=== PATIENT | female | born 1990 | race Caucasian/White ===

== ENCOUNTER → 2018-12-16 19:00 | Emergency (ER) | payer SELFPAY ==
[~2018-12-16 19:00] MED LIST: DOXYcycline CAP(*) 100 MG PO SCH; Ibuprofen TAB* 600 MG PO ONE
--- NOTE | 2018-12-16 20:25 | ED ---
Bite Injury/Animal - HPI Summary HPI Summary: This patient is a 28 year old female presenting to [facility] with a chief complaint of possible Lyme disease after tick bites. Eight days ago, the patient states she found two ticks on her and removed them. She states she has not noticed any rash, however this morning noticed a headache, fatigue, and joint pain that progressively became worse throughout the day. She states she has no previous Hx of Lyme. She rates her pain 3/10 in severity. - History of Current Complaint Chief Complaint: EDGeneral Stated Complaint: LYME TEST PER PT Time Seen by Provider: 12/16/18 20:18 Hx Obtained From: Patient Onset of Injury: Happened days ago Pain Intensity: 3 Pain Scale Used: 0-10 Numeric - Allergies/Home Medications Allergies/Adverse Reactions: Allergies Allergy/AdvReac Type Severity Reaction Status Date / Time No Known Allergies Allergy Verified 12/16/18 19:17 PMH/Surg Hx/FS Hx/Imm Hx Endocrine/Hematology History: Denies: Hx Diabetes Respiratory History: Denies: Hx Chronic Obstructive Pulmonary Disease (COPD) Infectious Disease History: No Infectious Disease History: Denies: Traveled Outside the [place] in Last 30 Days - Family History Known Family History: Negative: Cardiac Disease - Social History Hx Substance Use: No Hx Tobacco Use: No Review of Systems Positive: Fatigue Positive: Arthralgia Positive: Headache All Other Systems Reviewed And Are Negative: Yes Physical Exam - Summary Physical Exam Summary: VITAL SIGNS: Reviewed. GENERAL: Patient is a well-developed and nourished FEMALE who is lying comfortable in the stretcher. Patient is not in any acute respiratory distress. HEAD AND FACE: No signs of trauma. No ecchymosis, hematomas or skull depressions. No sinus tenderness. EYES: PERRLA, EOMI x 2, No injected conjunctiva, no nystagmus. EARS: Hearing grossly intact. Ear canals and tympanic membranes are within normal limits. MOUTH: Oropharynx within normal limits. NECK: Supple, trachea is midline, no adenopathy, no JVD, no carotid bruit, no c- spine tenderness, neck with full ROM CHEST: Symmetric, no tenderness at palpation LUNGS: Clear to auscultation bilaterally. No wheezing or crackles. CVS: Regular rate and rhythm, S1 and S2 present, no murmurs or gallops appreciated. ABDOMEN: Soft, non-tender. No signs of distention. No rebound no guarding, and no masses palpated. Bowel sounds are normal. EXTREMITIES: FROM in all major joints, no edema, no cyanosis or clubbing. NEURO: Alert and oriented x 3. No acute neurological deficits. Speech is normal and follows commands. SKIN: Dry and warm Triage Information Reviewed: Yes Vital Signs On Initial Exam: Initial Vitals Temp Pulse Resp BP Pulse Ox 99.9 F 92 16 126/79 100 12/16/18 19:13 12/16/18 19:13 12/16/18 19:13 12/16/18 19:13 12/16/18 19:13 Vital Signs Reviewed: Yes Diagnostics - Vital Signs Vital Signs Temp Pulse Resp BP Pulse Ox 12/16/18 19:13 99.9 F 92 16 126/79 100 - Laboratory Result Diagrams: 12/16/18 20:29 12/16/18 20:29 Lab Statement: Any lab studies that have been ordered have been reviewed, and results considered in the medical decision making process. Bite Injury Course/Dx - Course Course Of Treatment: This patient is a 28 year old female presenting to [facility] with a chief complaint of possible Lyme disease after tick bites. The patient has mild leukopenia and mild thrombocytopenia. This could be viral and due to the patients Hx of tick bites she will be treated for ehrlichiosis. A plan for discharge was discussed with the patient and she was agreeable with this plan. - Diagnoses Provider Diagnosis: Ehrlichiosis Discharge - Sign-Out/Discharge Documenting (check all that apply): Patient Departure - Discharge Patient Received Moderate/Deep Sedation with Procedure: No - Discharge Plan Condition: Stable Disposition: HOME Prescriptions: DOXYcycline CAP(*) [DOXYcycline 100MG CAP(*)] 100 mg PO BID #20 cap Ibuprofen TAB* [Motrin TAB* 800 MG] 800 mg PO Q6H PRN #30 tab PRN Reason: Fever/Pain Patient Education Materials: Tick Bite (ED) Additional Instructions: Return to ED with any new or worsening symptoms. - Attestation Statements Document Initiated by Scribe: Yes Documenting Scribe: Nasir Barahona Provider For Whom Scribe is Documenting (Include Credential): Deon Tavares MD Scribe Attestation: Nasir Moran, scribed for Deon Tavares MD on 12/16/18 at 210. Status of Scribe Document: Ready
[2018-12-16 20:36] LABS: ABS Lymphocytes 0.9 10^3/ul (1.0-4.8); ABS Monocytes 0.4 10^3/ul (0-0.8); ABS Neutrophils 1.7 10^3/ul (1.5-7.7); Eosinophil % 0.6 %; Hematocrit 38 % (35-47); Hemoglobin 12.8 g/dL (12.0-16.0); Lymphocyte % 29.3 %; Mean Corpuscular HGB Conc 34 g/dL (31-36); Mean Corpuscular Hemoglobin 31 pg (27-31); Mean Corpuscular Volume 91 fL (80-97); Mean Platelet Volume 7.4 fL (7.4-10.4); Nucleated Red Blood Cells % 0.1; Platelet Count 170 10^3/uL (150-450); Red Blood Count 4.17 10^6 /uL (3.70-4.87); Red Cell Distribution Width 12 % (10-15); White Blood Count 3.1 10^3/uL (3.5-10.8)
[2018-12-16 20:54] LABS: Albumin 4.4 g/dL (3.2-5.2); Albumin/Globulin Ratio 1.6 (1-3); C Reactive Protein 2.33 mg/L (<8.01); Calcium 9.3 mg/dL (8.6-10.3); EGFR African American 87.5 (>60); EGFR Non-African American 72.3 (>60); Globulin 2.8 g/dL (2-4); Potassium 3.5 mmol/L (3.5-5.0); Total Bilirubin 0.4 mg/dL (0.2-1.0); Total Protein 7.2 g/dL (6.4-8.9)
[2018-12-16 21:23] LABS: Urine Appearance Clear; Urine Bilirubin Negative (Negative); Urine Blood Negative (Negative); Urine Color Colorless; Urine Glucose Negative (Negative); Urine Ketones Negative (Negative); Urine Nitrite Negative (Negative); Urine Protein Negative (Negative); Urine Specific Gravity 1.001 (1.010-1.030); Urine Urobilinogen Negative (Negative)
[2018-12-16 21:36] VITALS: BP 111/74
== END | disposition home or self-care (01) ==
LOC: ED 19:00
DX: A77.40 Ehrlichiosis, unspecified (principal)
CPT/HCPCS: 36415; 80053; 81003; 85025; 86140; 86618; 86666; 99282; A9270-GY